=== PATIENT | female | born 1980 | race African-American/Black ===

== ENCOUNTER 2018-02-27 01:13 | Emergency (ER) | payer OTHER ==
[~2018-02-27] VITALS: Ht 162.6 cm; Wt 59.9 kg
[~2018-02-27 01:13] MED LIST: MULTIVITAMINS1 EAC7 PO
[2018-02-27 01:55] LABS: ABSOLUTE EOSINOPHILS 0.3 thou/uL (0.0-0.7); ABSOLUTE LYMPHOCYTES 2.1 thou/uL (0.8-5.3); ABSOLUTE MONOCYTES 0.5 thou/uL (0.0-1.2); ABSOLUTE NEUTROPHILS 2.5 thou/uL (1.6-8.1); BASOPHILS 0.6 %; EOSINOPHILS 6.3 %; HEMATOCRIT 35.8 % (37.0-47.0); HEMOGLOBIN 12.1 gm/dL (12.0-15.0); MCH 29.6 pg (26.0-34.0); MCHC 33.8 g/dL (28.0-37.0); MCV 87.5 fL (80.0-100.0); MONOCYTES 9.1 %; MPV 9.4 fl. (7.2-11.1); NUCLEATED RBCS 0 /100WBC; PLATELET COUNT* 224 thou/uL (150-400); RBC 4.09 mil/uL (4.20-5.00); RDW-CV 13.5 % (10.5-14.5); WBC 5.4 thou/uL (4.0-11.0)
[2018-02-27 02:03] LABS: ANION GAP 7 mmol/L (7-16); BUN 9 mg/dL (7-18); CALCIUM 8.8 mg/dL (8.5-10.1); CHLORIDE 104 mmol/L (98-107); CO2 27 mmol/L (21-32); CREATININE 0.8 mg/dL (0.6-1.3); GLUCOSE 86 mg/dL (70-99); POTASSIUM 3.8 mmol/L (3.5-5.1); SODIUM 138 mmol/L (136-145)
[2018-02-27 02:10] LABS: ALBUMIN 3.2 g/dL (3.4-5.0); ALKALINE PHOSPHATASE 85 U/L (46-116); LIPASE 147 U/L (73-393); SGOT 16 U/L (15-37); SGPT 19 U/L (30-65); TOTAL BILIRUBIN 0.2 mg/dL (<0.1-1.0); TOTAL PROTEIN 7.4 g/dL (6.4-8.2); TROPONIN-I LEVEL <0.06 ng/mL (<0.06)
[2018-02-27 03:33] VITALS: BP 97/59
--- NOTE | 2018-02-27 11:12 | EKG ---
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 : 1980 Requested By: Oumou Vivas Order Number: [id number] MD: Dayton Beth Measurements Intervals [place] Rate: 68 P: -25 NH: 142 QRS: 58 QRSD: 83 T: 41 QT: 375 QTc: 399 Interpretive Statements Sinus rhythm Baseline wander in lead(s) II Compared to ECG 02/11/2017 10:19:25 No significant changes Electronically Signed On 02-27-2018 11:12:35 CDT by Dayton Beth [email or web address] <ELECTRONICALLY SIGNED> By: Dayton Beth MD, [facility] 02/27/18 [id number] Dayton Beth MD, [facility] /EPI
== END 2018-02-27 03:33 | disposition home or self-care (01) ==
LOC: M.ERS 01:13
PROVIDERS: Personal Emergency Response Attendant
DX: R07.89 Other chest pain (principal)